=== PATIENT | male | born 1980 | race African-American/Black ===

== ENCOUNTER 2020-08-11 16:23 | Emergency (ER) | payer MEDICAID ==
[~2020-08-11] VITALS: Ht 177.8 cm; Wt 82.0 kg
[2020-08-11 17:38] VITALS: BP 130/85
== END 2020-08-11 17:40 | disposition home or self-care (01) ==
LOC: ER 16:23
DX: S01.81XD Laceration without foreign body of other part of head, subsequent encounter (principal); Z48.02 Encounter for removal of sutures; X58.XXXD Exposure to other specified factors, subsequent encounter
CPT/HCPCS: 99281

== ENCOUNTER 2020-09-22 16:30 | Emergency (ER) | payer MEDICAID ==
[~2020-09-22] VITALS: Ht 180.3 cm; Wt 86.0 kg
[2020-09-22 16:34] VITALS: BP 143/79
[2020-09-22] MEDS ORDERED: EMTR1TAB11 MT ×2 (20:50→20:51)
[2020-09-22] MEDS ORDERED: RALT400T MT ×2 (20:50→20:51)
[2020-09-22] MEDS ORDERED: AMOX-424 MT (20:54)
== END 2020-09-22 21:17 | disposition home or self-care (01) ==
LOC: ER 16:30
DX: S69.91XA Unspecified injury of right wrist, hand and finger(s), initial encounter (principal); Z79.899 Other long term (current) drug therapy; Z59.0 Homelessness; W46.0XXA Contact with hypodermic needle, initial encounter; Y93.89 Activity, other specified; Y92.89 Other specified places as the place of occurrence of the external cause; Y99.8 Other external cause status
CPT/HCPCS: 99281; 99283

== ENCOUNTER 2022-07-02 19:23 | Emergency (ER) | payer MEDICAID, OTHER ==
[~2022-07-02] VITALS: Ht 180.3 cm; Wt 94.2 kg
[~2022-07-02 19:23] MED LIST: AMOX-424 MT; EMTR1TAB11 MT; RALT400T MT
[2022-07-02 19:42] VITALS: BP 101/83
[2022-07-02] MEDS ORDERED: IBUPROFEN 400MG TABLET PO ONE (22:00)
[2022-07-02] MEDS ORDERED: IBUP-2028 MT (22:33)
== END 2022-07-02 22:55 | disposition home or self-care (01) ==
LOC: ER 19:23
DX: S63.691A Other sprain of left index finger, initial encounter (principal); W22.8XXA Striking against or struck by other objects, initial encounter; Y93.89 Activity, other specified; Y92.018 Other place in single-family (private) house as the place of occurrence of the external cause
CPT/HCPCS: 73140; 99283